=== PATIENT | male | born 1975 | race Asian ===

== ENCOUNTER 2017-08-13 13:13 | Emergency (ER) | payer BC ==
[~2017-08-13] VITALS: Ht 177.8 cm; Wt 86.2 kg
[2017-08-13 13:20] VITALS: BP_SYST 157
--- NOTE | 2017-08-13 13:42 | NUR ---
Patient to ER bed 05 to gown for evaluation. Side rails up. Report given to Yassien MOSES
--- NOTE | 2017-08-13 13:43 | NUR ---
Danielle Lopez DIRECTOR OF WORKFORCE DEVELOPMENT at bedside examining patient
--- NOTE | 2017-08-13 13:44 | NUR ---
Pt AAOx 4 presents to epigastric pain. Pt denies signifcant med hx . Pt report n/v and no diarrhea. Pt denies CP or SOB. # 20 gauge angiocath placed to RFA. Use of asceptic technique. Opsite placed over site. Blood return noted. Blood for lab drawn from site. Flushed with 10 cc of normal saline. No evidence of infiltration noted. Patient tolerated well.
[2017-08-13] MEDS ORDERED: MORPHINE 4 MG/ML INJ. SYRINGE IVP ONE (13:45)
[2017-08-13] MEDS ORDERED: ONDANSETRON HCL 4 MG/2 ML VIAL IVP ONE (13:45)
[2017-08-13] MEDS ORDERED: NACL 0.9% 1,000 ML IV ONE (13:45)
--- NOTE | 2017-08-13 13:46 | NUR ---
Pt reports having DM and HTN as med hx.
--- NOTE | 2017-08-13 13:55 | NUR ---
Pt medicated tolerated well.
--- NOTE | 2017-08-13 14:25 | NUR ---
Pt attempting to give urine specimen in urinal.
[2017-08-13 14:26] LABS: BASOPHILS % (AUTO) 0.3 % (0.0-2.0); EOSINOPHILS % (AUTO) 0.3 % (0.0-4.0); HEMATOCRIT 45.3 % (36-54); LYMPHOCYTES # (AUTO) 1.5 K/uL (1.0-5.5); LYMPHOCYTES % (AUTO) 17.3 % (20.5-51.5); MEAN CORPUSCULAR HEMOGLOBIN 29 pg (27-31); MEAN CORPUSCULAR HGB CONC 33 % (32-36); MEAN CORPUSCULAR VOLUME 87 fL (79.0-98.0); MONOCYTES # (AUTO) 0.2 K/uL (0.0-1.0); MONOCYTES % (AUTO) 2.5 % (1.7-9.3); NEUTROPHILS # (AUTO) 6.9 K/uL (1.8-7.7); NEUTROPHILS % (AUTO) 79.6 % (40.0-70.0); PLATELET COUNT (AUTO) 211 K/uL (130-430); RED BLOOD CELL COUNT(AUTO) 5.21 MIL/uL (4.2-6.2); RED CELL DISTRIBUTION WIDTH 12.6 % (9.0-15.0); WHITE BLOOD COUNT (AUTO) 8.6 K/uL (4.8-10.8)
[2017-08-13 14:36] LABS: CALCIUM 9.5 mg/dL (8.4-11.0); CREATININE 1.24 mg/dL (0.55-1.30); POTASSIUM 3.9 mmol/L (3.5-5.1)
[2017-08-13 14:40] LABS: ALBUMIN 4.5 g/dL (3.4-4.8)
[2017-08-13 14:57] LABS: TOTAL BILIRUBIN 0.9 mg/dL (0.0-1.0)
--- NOTE | 2017-08-13 15:25 | NUR ---
Pt tolerated straight cath well. Urine collected and sent.
--- NOTE | 2017-08-13 15:30 | NUR ---
Patient transported to radiology via gurney, accompanied by rad staff.
[2017-08-13 15:44] LABS: BILIRUBIN,URINE NEGATIVE (NEGATIVE); BLOOD, URINE NEGATIVE (NEGATIVE); CLARITY/URINE CLEAR (CLEAR); COLOR,URINE YELLOW (YELLOW); GLUCOSE,URINE NEGATIVE (NEGATIVE); KETONES,URINE 2+ (NEGATIVE); LEUKOCYTE ESTERASE ,URINE NEGATIVE (NEGATIVE); NITRITE, URINE NEGATIVE (NEGATIVE); PROTEIN URINE TRACE (NEGATIVE); UROBILINOGEN,URINE 0.2 (0.2-1.0)
[2017-08-13] MEDS ORDERED: MORPHINE 2 MG/ML INJ. SYRINGE IVP ONE (16:00)
[2017-08-13] MEDS ORDERED: DIPHENHYDRAMINE INJ 50 MG/ML VIAL IVP ONE (16:00)
[2017-08-13 16:38] VITALS: BP_SYST 146
--- NOTE | 2017-08-13 16:38 | NUR ---
Patient given written and verbal discharge instructions and verbalizes understanding. ER MD discussed with patient the results and treatment provided. Patient in stable condition. ID arm band removed. IV catheter removed intact and dressing applied, no active bleeding. Rx of zofran given. Patient educated on pain management and to follow up with PMD. Pain Scale 2. Opportunity for questions provided and answered.
== END 2017-08-13 16:38 | disposition home or self-care (01) ==
LOC: SED 13:13
DX: R10.13 Epigastric pain (principal); R11.2 Nausea with vomiting, unspecified; E78.5 Hyperlipidemia, unspecified; E11.9 Type 2 diabetes mellitus without complications; I10 Essential (primary) hypertension
CPT/HCPCS: 36415; 74176; 80053; 81003; 83690; 84484; 85025; 87040; 93005; 96361; 96374; 96375; 96376; 99285; J1200; J2270 ×2; J2405; J7030